=== PATIENT | female | born 1985 | race Two or more races ===

== ENCOUNTER → 2018-03-26 | Emergency (ER) | payer OTHER ==
[~2018-03-26] VITALS: Ht 162.6 cm; Wt 61.7 kg
[~2018-03-26] MED LIST: CYCLOBENZAPRINE10 MG PO; FLONASE16 GM NS; KETO10TA2 PO; LEVSIN0.125 MG PO; MUCINEX D1 TAB.SR1 PO; ORPHENADRINE C100 MG PO; PROTONIX40 MG PO; ZANTAC300 MG PO; ZITHROMAX500 MG PO; ZOFRAN4 MG PO; ZYRTEC10 MG PO
== END | disposition home or self-care (01) ==
LOC: ER 20:22
DX: M62.830 Muscle spasm of back (principal)

== ENCOUNTER 2020-03-03 01:09 | Emergency (ER) | payer OTHER ==
[~2020-03-03] VITALS: Ht 162.6 cm; Wt 58.1 kg
== END 2020-03-03 02:29 | disposition home or self-care (01) ==
LOC: ER 01:09
DX: R00.2 Palpitations (principal)